=== PATIENT | female | born 1980 | race Caucasian/White ===

== ENCOUNTER 2016-09-15 10:50 | Emergency (ER) | payer MEDICAID ==
[~2016-09-15] VITALS: Ht 160 cm; Wt 78.9 kg
[2016-09-15 10:57] VITALS: BP 116/64; PULSE 88; RESP 16; TEMP 98; O2SAT 98
--- NOTE | 2016-09-15 12:00 | NUR ---
Patient was seen walking out of ER waiting rm.
--- NOTE | 2016-09-15 13:04 | NUR ---
Called for patient for retraiged, unable to locate patient.
== END 2016-09-15 13:04 | disposition left against medical advice (07) ==
LOC: SED 10:50
DX: R10.9 Unspecified abdominal pain (principal); Z53.21 Procedure and treatment not carried out due to patient leaving prior to being seen by health care provider

== ENCOUNTER 2017-01-09 17:09 | Emergency (ER) | payer MEDICAID ==
[~2017-01-09] VITALS: Ht 160 cm; Wt 78.9 kg
[2017-01-09 17:19] VITALS: BP_SYST 106
[2017-01-09] MEDS ORDERED: IBUPROFEN 600 MG TABLET PO ONE (18:30)
[2017-01-09 19:00] VITALS: BP_SYST 120
== END 2017-01-09 19:00 | disposition home or self-care (01) ==
LOC: SED 17:09
DX: M25.522 Pain in left elbow (principal)
CPT/HCPCS: 81025; 99284

== ENCOUNTER 2019-04-27 17:10 | Emergency (ER) | payer SELFPAY ==
[~2019-04-27] VITALS: Ht 154.9 cm; Wt 87.1 kg
[2019-04-27 17:10] VITALS: BP_SYST 97
[2019-04-27 17:50] VITALS: BP_SYST 97
== END 2019-04-27 17:50 ==
LOC: SED 17:10
DX: Z02.89 Encounter for other administrative examinations (principal)
CPT/HCPCS: 99283

== ENCOUNTER 2023-02-12 07:55 | Emergency (ER) | payer OTHER, MEDICAID ==
[~2023-02-12] VITALS: Ht 160 cm; Wt 95.3 kg
[2023-02-12 08:02] VITALS: BP_SYST 145; PULSE 110; RESP 22; TEMP 98.3; O2SAT 98
--- NOTE | 2023-02-12 08:02 | NUR ---
Patient to ER bed 03 to gown for evaluation. Side rails up.
--- NOTE | 2023-02-12 08:05 | NUR ---
PATIENT BIB SELF C/O BODY ACHES, CHEST CONGESTION, PRODUCTIVE COUGH WITH GREEN MUCUS, HEADCHAES, FATIGUE/GENERAL WEAKNESS & FEVERS (UP TO 101) SINCE X 5 DAYS. DENIES N/V/D. NO MED HX. SX HX OF TONSIL REMOVAL & 3 C-SECTIONS. NKA. VSS. TEMP 99.2 TEMPORAL. MADE AWARE.
--- NOTE | 2023-02-12 08:10 | NUR ---
COVID & FLU SWABS COLLECTED & TAKEN TO LAB.
--- NOTE | 2023-02-12 08:12 | NUR ---
DOCTOR AT BEDSIDE
[2023-02-12] MEDS ORDERED: ALBMDI INH ×2 (08:24→09:14)
[2023-02-12] MEDS ORDERED: IBUP-1969 PO ×2 (08:24→09:14)
[2023-02-12] MEDS ORDERED: BENZ100C92 PO ×2 (08:24→09:14)
[2023-02-12] MEDS ORDERED: GUAI100S14 PO ×2 (08:24→09:14)
[2023-02-12] MEDS ORDERED: KETOROLAC TROMETHAMINE 30 MG VIAL IM ONE (08:30)
--- NOTE | 2023-02-12 08:35 | NUR ---
UA COLLECTED AND TAKEN TO LAB. HCG NEGATIVE.
--- NOTE | 2023-02-12 08:38 | NUR ---
MEDICATION ADMINISTERED PER MD ORDER
--- NOTE | 2023-02-12 09:08 | NUR ---
PATIENT STATES PAIN LEVEL IS 3/10 FOLLOWING TORADOL INJECTION. PAIN MEDICATION WAS EFFECTIVE.
--- NOTE | 2023-02-12 09:14 | NUR ---
Patient given written and verbal discharge instructions and verbalizes understanding. ER MD discussed with patient the results and treatment provided. Patient in stable condition. ID arm band removed. Rx of VENTOLIN HFA, BENZONATATE, GUAIFENESIN, IBUPROFEN given. Patient educated on pain management and to follow up with PMD. Pain Scale 3/10. Opportunity for questions provided and answered. Medication side effect fact sheet provided. Excuse from work provided.
[2023-02-12 09:21] VITALS: BP_SYST 122; PULSE 80; RESP 18; TEMP 98.9; O2SAT 93
== END 2023-02-12 09:14 | disposition home or self-care (01) ==
LOC: SED 07:55
DX: J06.9 Acute upper respiratory infection, unspecified (principal); B34.9 Viral infection, unspecified; J02.9 Acute pharyngitis, unspecified; R50.9 Fever, unspecified; R05.9 Cough, unspecified; Z79.899 Other long term (current) drug therapy; Z20.822 Contact with and (suspected) exposure to COVID-19
CPT/HCPCS: 99283; 87426; 36415; 81025; 96372; 87804 ×2; J1885

== ENCOUNTER 2023-04-23 22:34 | Emergency (ER) | payer OTHER, MEDICAID ==
[~2023-04-23] VITALS: Ht 160 cm; Wt 93.0 kg
[~2023-04-23 22:34] MED LIST: ALBMDI INH; BENZ100C92 PO; GUAI100S14 PO; IBUP-1969 PO
[2023-04-23 22:46] VITALS: BP_SYST 143; PULSE 114; RESP 18; TEMP 98.4; O2SAT 97
[2023-04-23] MEDS ORDERED: NACL 0.9% 1,000 ML IV ONE (23:15)
[2023-04-23] MEDS ORDERED: KETOROLAC TROMETHAMINE 30 MG VIAL IVP ONE (23:15)
[2023-04-23] MEDS ORDERED: cefTRIAXone 1 GM IVPB PREMIX 50 ML IV ONE (23:15)
[2023-04-23 23:37] LABS: BASOPHILS % (AUTO) 0.1 % (0.0-2.0); EOSINOPHILS % (AUTO) 0.5 % (0.0-4.0); HEMOGLOBIN 12.3 g/dL (12.0-16.0); LYMPHOCYTES # (AUTO) 2.3 K/uL (1.0-5.5); LYMPHOCYTES % (AUTO) 24.1 % (20.5-51.5); MEAN CORPUSCULAR HEMOGLOBIN 29 pg (27-31); MEAN CORPUSCULAR HGB CONC 32 % (32-36); MEAN CORPUSCULAR VOLUME 89 fL (79.0-98.0); MONOCYTES # (AUTO) 0.8 K/uL (0.0-1.0); MONOCYTES % (AUTO) 8.6 % (1.7-9.3); NEUTROPHILS # (AUTO) 6.4 K/uL (1.8-7.7); NEUTROPHILS % (AUTO) 66.7 % (40.0-70.0); PLATELET COUNT (AUTO) 248 K/uL (130-430); RED BLOOD CELL COUNT(AUTO) 4.28 MIL/uL (4.2-6.2); RED CELL DISTRIBUTION WIDTH 15.2 % (9.0-15.0); WHITE BLOOD COUNT (AUTO) 9.6 K/uL (4.8-10.8)
[2023-04-23 23:49] LABS: CREATININE 0.68 mg/dL (0.55-1.30); POTASSIUM 3.2 mmol/L (3.5-5.1)
[2023-04-23 23:54] LABS: ALBUMIN 3.7 g/dL (3.4-4.8); TOTAL BILIRUBIN 0.4 mg/dL (0.0-1.0); TOTAL PROTEIN, SERUM 7.2 g/dL (6.4-8.3)
[2023-04-24] MEDS ORDERED: MORPHINE 4 MG INJ. 4 MG/ML VIAL IVP ONE (00:15)
[2023-04-24] MEDS ORDERED: NACL 0.9% 2,000 ML IV ONE (01:00)
[2023-04-24 01:02] LABS: BILIRUBIN,URINE NEGATIVE (NEGATIVE); BLOOD, URINE NEGATIVE (NEGATIVE); CLARITY/URINE Clear (CLEAR); COLOR,URINE YELLOW (YELLOW); GLUCOSE,URINE NEGATIVE (NEGATIVE); KETONES,URINE NEGATIVE (NEGATIVE); LEUKOCYTE ESTERASE ,URINE NEGATIVE (NEGATIVE); NITRITE, URINE NEGATIVE (NEGATIVE); PROTEIN URINE NEGATIVE (NEGATIVE); UROBILINOGEN,URINE 0.2 (0.2-1.0)
[2023-04-24 04:36] VITALS: BP_SYST 134; PULSE 78; RESP 18; TEMP 98.1; O2SAT 97
== END 2023-04-24 04:36 | disposition home or self-care (01) ==
LOC: SED 22:34
DX: R14.0 Abdominal distension (gaseous) (principal); N83.291 Other ovarian cyst, right side; M54.50 Low back pain, unspecified; Z79.899 Other long term (current) drug therapy
CPT/HCPCS: 99285; 96365; 96375 ×2; 80053; 85025; 87040; 36415; 81025; 83605; 81003; 74176; 96361; 76376; J0696; J1885; J2270; J7030